=== PATIENT | female | born 1990 ===

== ENCOUNTER 2021-02-18 10:44 | Inpatient (IN) | payer SELFPAY ==
[2021-02-18 13:01] VITALS: BP 116/85; PULSE 65; RESP 16; TEMP 36.3; O2SAT 95
--- NOTE | 2021-02-18 13:37 | PC.NURSE ---
Mel Britton is a 30 year old female whom presents from [facility] for referral for mental health evaluation. Patient was seen in the [facility] facility for schizophrenia and not taking her medications. Patient states that she has been off of her medication for about 6 months and has been having mental breakdowns and thoughts of SI for several weeks. During interview with patient she states I hear and see things that are not there, I talk with them along and sometimes they tell me to hurt myself and others . Patient has a lengthy past of suicidal attempts and has been in multiple facilities, is not sure when or where they were located. Patient is cooperative and is answering questions appropriately. Patient is ready to get back on her medication because she knows she needs them .
[2021-02-18] MEDS: nicotine 21 mg Patch 1 PATCH TRANSDERMA (13:51)
[2021-02-18 14:00] VITALS: BP 116/85; PULSE 65; RESP 16; TEMP 36.3; O2SAT 95
--- NOTE | 2021-02-18 14:25 | P.HP_ITS ---
Providers/Chief Complaint Admitting Physician: Corinne Leon DO Chief Complaint: SI HPI NPU History of Present Illness Mel Britton is a 30 year old female with reported long standing psychiatric history since around age 14 complicated by longstanding polysubstance abuse but reports last use of illicits other than marijuana being 18 months ago reporting that she used methamphetamine on a regular basis in the past but currently using cannabis on a daily basis presented to an [facility] emergency department with suicidal thoughts in the context of an argument with her boyfriend stating that she went to the emergency department with the hope of restarting her medication. Notes from [facility] emergency department reviewed as part of this evaluation to include lab and diagnostic work-up. Patient states that she was never suicidal and denies making any suicidal statements at the [facility] emergency department but reports that when she was asked if she had ever tried to harm herself before, states that she had told them that she had tried hanging herself and cutting herself in the past. She states last suicide attempt was approximately 18 months ago when she was still using methamphetamine. Patient states that she has been off of her medication approximately 6 months and states that she had previously been followed by mental health care facility and was being prescribed Abilify 10 mg daily which she stated controlled her symptoms. Patient reports that she has been having auditory hallucinations which she reports are statements about people messing with her. She denies any visual hallucinations and currently denies any delusions although she reports what sounds like paranoid delusions and ideas of reference while she was using methamphetamine. She denies any current depressive symptoms but reports past intermittent depressive symptoms for a few days at a time but denies any significant impairment related to these mood symptoms and states that she has not had any problems with motivation, tardiness or clots from work secondary to depressive symptoms. She currently denies any suicidal ideation. Review of Systems General: Reports: 10 or more systems reviewed and unremarkable except in HPI and below Meds NPU Allergies Allergy/AdvReac Type Severity Reaction Status Date / Time No Known Drug Allergies Allergy Unknown Verified 02/18/21 13:01 [facility] NPU Other Psychiatric History: Other Psychiatric History: Per above, reports first contact with mental health around age 14, states for psychiatric hospitalization in her early 20s with last psychiatric hospitalization occurring approximately 18 months ago Reports past suicide attempts with first attempt being sometime in her late teens and last attempt approximately 18 months ago while under the influence of substances, denies any history of self-harm behavior Mental Status Exam MSE Comments: Appears older than stated age, multiple tattoos on exposed skin, appropriately dressed in hospital scrubs, disheveled, tired appearing, initially lying down before going to day room for interview at which time she was calm, cooperative, interactive, good eye contact Psychomotor activity is neither increased or decreased, no agitation I feel okay, congruent affect, not labile Alert and oriented to person, place, time, situation Memory and concentration appear to be intact per interview Intellectual functioning appears to be average at best based on vocabulary, interview Thought process, linear, no flight of ideas, no looseness of associations Thought content, no delusions, no hallucinations, no suicidal or homicidal ideation Insight and judgment appear to be fair to intact Vitals/I&O/Wt Last Vital Signs Temp 97.3 F L 02/18/21 14:00 Pulse 65 02/18/21 14:00 Resp 16 02/18/21 14:00 BP 116/85 02/18/21 14:00 Pulse Ox 95 02/18/21 14:00 Weight last 48 hrs Weight 72.575 kg A&P Assessment and plan (1) Suicidal ideation: Status: Acute (2) Cannabis abuse: Status: Acute (3) Alcohol abuse: Status: Acute (4) Mood disorder: Status: Acute Additional A&P Information Patient with longstanding history of polysubstance abuse and daily cannabis use presenting to an [facility] emergency department with report of suicidal ideation but states that she was not suicidal but seeking to restart her medication which she had been off for 6 months. Patient does not report any disorganization of thoughts, speech or behavior but does report many episodes of psychotic symptoms in the context of substance use as well as mood symptoms. Patient would benefit from medication stabilization will be monitored with coordination for post discharge mental health care follow-up and substance counseling. INVOLUNTARY ADMIT to inpatient psychiatry START Abilify 10 mg daily targeting mood, psychotic symptoms Encouraged patient to participate in unit activities to include group sessions, unit milieu Coordinate with delinquency prevention social worker for post discharge mental health care follow-up Involuntary Hold Information 96 Hour Hold: 96 Hour Involuntary Admission: No Attestations NPU Medical Necessity Statement*: Psychiatric hospitalization is indicated for medication stabilization, coordination for safe discharge Anticipate hospital stay to exceed 2 midnights Coding Level of Care Code Acute Shank Sander for Benja Almanza Diagnoses Suicidal ideation R45.851 Cannabis abuse F12.10 Alcohol abuse F10.10 Mood disorder F39
[2021-02-18] MEDS: ARIPiprazole 10 mg Tablet PO (14:54)
[2021-02-18 21:36] VITALS: BP 120/84; PULSE 88; RESP 17; TEMP 36.8; O2SAT 98
[2021-02-19] MEDS: acetaminophen 325 mg Tablet 650 MG PO ×3 (04:38→17:51)
[2021-02-19 06:00] VITALS: BP 105/79; PULSE 80; RESP 18; TEMP 36.4; O2SAT 97
[2021-02-19] MEDS: ARIPiprazole 10 mg Tablet PO (08:48)
[2021-02-19] MEDS: nicotine 21 mg Patch 1 PATCH TRANSDERMA (10:20)
[2021-02-19 14:00] VITALS: BP 112/80; PULSE 86; RESP 17; TEMP 36.3; O2SAT 99
--- NOTE | 2021-02-19 14:15 | PM.NPN ---
Subjective NPU Subjective: Interval history: Denies any interval depressive symptoms, denies any suicidal ideation Denies any interval auditory hallucinations or visual destinations, denies any delusions Reports tolerating restarting Abilify well with no reports of any medication side effects States that her appetite is been good, states that she slept well Per staff report, no interval behavioral disturbances Mental Status Exam MSE Comments: Lying in bed, calm, cooperative, interactive, good eye contact Psychomotor activity is neither increased or decreased, no agitation I feel better, congruent affect, not labile Alert and oriented to person, place, time, situation Memory and concentration appear to be intact per interview Thought process, linear, no flight of ideas, no looseness of associations Thought content, no delusions, no hallucinations, no suicidal or homicidal ideation Insight and judgment appear to be fair to intact Vitals/I&O/Wt Last Vital Signs Temp 97.6 F 02/19/21 06:00 Pulse 80 02/19/21 06:00 Resp 18 02/19/21 06:00 BP 105/79 02/19/21 06:00 Pulse Ox 97 02/19/21 06:00 Weight last 48 hrs Weight 72.575 kg A&P Assessment and plan (1) Suicidal ideation: Status: Acute (2) Mood disorder: Status: Acute (3) Alcohol abuse: Status: Acute (4) Cannabis abuse: Status: Acute Additional A&P Information Patient reports significant improvement, denies any interval mood symptoms or psychotic symptoms, discussed need for post discharge substance and alcohol counseling/treatment CONTINUE current medication, continue to monitor Involuntary Hold Information 96 Hour Hold: 96 Hour Involuntary Admission: No Attestations NPU Medical Necessity Statement*: Continues to require psychiatric hospitalization for medication stabilization Coding Level of Care Code Acute Scraper Operator for Makayla Fwashley Diagnoses Suicidal ideation R45.851 Mood disorder F39 Alcohol abuse F10.10 Cannabis abuse F12.10
[2021-02-19] MEDS: hyDROXYzine 25 mg Capsule 50 MG PO (21:38)
[2021-02-19] MEDS: trazodone 50 mg Tablet PO (21:38)
[2021-02-19 22:00] VITALS: BP 111/74; PULSE 86; RESP 18; TEMP 36.5; O2SAT 95
[2021-02-20 06:00] VITALS: BP 111/68; PULSE 82; RESP 17; TEMP 36.4; O2SAT 96
[2021-02-20] MEDS: acetaminophen 325 mg Tablet 650 MG PO (08:08)
[2021-02-20] MEDS: ARIPiprazole 10 mg Tablet PO (08:48)
[2021-02-20] MEDS: nicotine 21 mg Patch 1 PATCH TRANSDERMA (09:05)
--- NOTE | 2021-02-20 09:07 | PM.NDC ---
Diagnoses at Discharge Discharge Diagnosis (1) Suicidal ideation: Status: Acute (2) Mood disorder: Status: Acute (3) Alcohol abuse: Status: Acute (4) Cannabis abuse: Status: Acute Reason for Visit Reason for Visit: SI Hospital Course Hospital Course 30 year old female with reported long standing psychiatric history since around age 14 complicated by longstanding polysubstance abuse but reports last use of illicits other than marijuana being 18 months ago reporting that she used methamphetamine on a regular basis in the past but currently using cannabis on a daily basis presented to an [facility] emergency department with suicidal thoughts in the context of an argument with her boyfriend stating that she went to the emergency department with the hope of restarting her medication. Notes from [facility] emergency department reviewed as part of this evaluation to include lab and diagnostic work-up. Patient quickly reconstituted on the unit when she became sober and was no longer suicidal. Patient reports intermittent mood symptoms and states that she was wanting to restart her Abilify which she tolerated well and was titrated up to Abilify 10 mg daily with no reports of any medication side effects. Patient was denying any suicidal ideation and denied any depressive symptoms and states that she felt like her major stressor was having an argument with her boyfriend while she was intoxicated with alcohol. 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 Patient participate in unit milieu with no reports of any behavioral disturbances. Patient was not psychotic and was not suicidal or endorsing any psychiatric symptoms at the time of discharge and did not appear to pose an imminent threat of harm to self or others. Low to moderate risk of harm to self or others given no current suicidal ideation and no endorsement of any psychiatric symptoms although her risk may be elevated if she continues to abuse alcohol or any substances elevating her risk secondary to unexpected, impulsive behavior. Risk medication included psychiatric hospitalization, medication stabilization, recommendation to abstain from use of substances and alcohol as well as recommendation to be compliant with post discharge mental health care follow-up to include substance counseling/treatment. Patient was able to communicate her understanding of the need to abstain from use of substances and alcohol as well as the need for compliance with medication, medication management and substance counseling/treatment in order to further mitigate her risk of harm to self and others. Involuntary Hold Information 96 Hour Hold: 96 Hour Involuntary Admission: No Mental Status Exam MSE Comments: Standing at the nurses station, polite, interactive, appropriately dressed in hospital scrubs Psychomotor activity is neither increased or decreased, no agitation Good, congruent affect, not labile Alert and oriented to person, place, time, situation Memory and concentration appear to be intact per interview Thought process, linear, no flight of ideas, no looseness of associations Thought content, no delusions, no hallucinations, no suicidal or homicidal ideation Insight and judgment appear to be fair to intact Discharge Data Vitals: Last Vital Signs Temp 97.6 F 02/20/21 06:00 Pulse 82 02/20/21 06:00 Resp 17 02/20/21 06:00 BP 111/68 02/20/21 06:00 Pulse Ox 96 02/20/21 06:00 Discharge Plan Discharge Patient Disposition: Home Condition: Stable Prescriptions: New aripiprazole 10 mg Tablet 10 mg PO DAILY Qty: 30 RF: 0 No Action No Known Home Medications RF: 0 Discharge Orders: Discharge Order (Routine); Ordered 02/20/21 Ordered By: Corinne Leon Referrals: [facility] [Other] (Walk in between M-F 8AM - 5PM Please bring photo ID, last two check stubs, Proof of residence, social security card , any insurance cards and either medication bottles or pictures of the medication labels on bottle. The initial appointment will be 2 hrs long so please make enough time for the appointment. ) Discharge Diet: Regular Discharge Activity: Resume usual activity Patient Instructions: Opioid Safety Discharge Attestations NPU Time Spent in Discharge Care*: greater than 30 min Status at Discharge: Cognitive status at discharge: cognitively intact, Behavioral status at discharge: cooperative, Functional status at discharge: independent ambulation Overall status at discharge: patient is back to baseline Coding Level of Care Code Acute g [facility] note Diagnoses Suicidal ideation R45.851 Mood disorder F39 Alcohol abuse F10.10 Cannabis abuse F12.10
[2021-02-20 09:40] VITALS: BP 111/68; PULSE 82; RESP 17; TEMP 36.4; O2SAT 96
== END 2021-02-20 09:40 | disposition home or self-care (01) | DRG 885 ==
PROVIDERS: Admitting Provider Psychiatry & Neurology Psychiatry; Visit Provider Psychiatry & Neurology Psychiatry
DX: F39 Unspecified mood [affective] disorder (principal); R45.851 Suicidal ideations; F12.10 Cannabis abuse, uncomplicated; F10.10 Alcohol abuse, uncomplicated; Z91.14 Patient's other noncompliance with medication regimen